=== PATIENT | female | born 1950 | race Asian ===

== ENCOUNTER 2019-06-08 09:42 | Inpatient (IN) | payer OTHER | END 2019-06-10 09:43 | disposition still patient (30) | LOC: PAVB 09:42 | PROVIDERS: ADMIT Internal Medicine ==

== ENCOUNTER 2019-06-10 10:34 | Inpatient (IN) | payer OTHER | END 2019-07-10 09:04 | disposition still patient (30) | LOC: PAVB 10:34 | PROVIDERS: ADMIT Internal Medicine ==

== ENCOUNTER 2019-06-19 05:58 | Outpatient (CLI) | payer OTHER ==
[2019-06-19 06:39] LABS: POTASSIUM 4.2 mmol/L (3.6-5.2)
== END 2019-06-19 20:27 | disposition home or self-care (01) ==
LOC: LAB 05:58
PROVIDERS: Internal Medicine
DX: N18.2 Chronic kidney disease, stage 2 (mild) (principal)
CPT/HCPCS: 36415; 80048

== ENCOUNTER → 2019-06-19 | Outpatient (CLI) | payer OTHER | LOC: LAB 23:41 | DX: Z51.81 Encounter for therapeutic drug level monitoring (principal) | CPT/HCPCS: 36415; 80200 ==

== ENCOUNTER 2019-07-10 10:14 | Inpatient (IN) | payer OTHER | END 2019-08-10 09:13 | disposition still patient (30) | LOC: PAVB 10:14 | PROVIDERS: ADMIT Internal Medicine | CPT/HCPCS: 87635; U0002 ==

== ENCOUNTER 2019-08-10 10:59 | Inpatient (IN) | payer OTHER | END 2019-09-09 10:21 | disposition still patient (30) | LOC: PAVB 10:59 | PROVIDERS: ADMIT Internal Medicine | CPT/HCPCS: 87635; U0002 ==

== ENCOUNTER 2019-08-12 04:58 | Outpatient (CLI) | payer OTHER | END 2019-08-12 21:48 | disposition home or self-care (01) | LOC: LAB 04:58 | DX: E11.9 Type 2 diabetes mellitus without complications (principal) | CPT/HCPCS: 83036 ==

== ENCOUNTER 2019-09-09 11:27 | Inpatient (IN) | payer OTHER | END 2019-10-10 09:18 | disposition still patient (30) | LOC: PAVB 11:27 | PROVIDERS: ADMIT Internal Medicine | CPT/HCPCS: 87635; U0002 ==

== ENCOUNTER 2019-09-16 09:25 | Outpatient (CLI) | payer OTHER | END 2019-09-16 21:30 | disposition home or self-care (01) | LOC: RAD 09:25 | DX: M25.512 Pain in left shoulder (principal) ==

== ENCOUNTER 2019-09-27 23:45 | Outpatient (CLI) | payer OTHER | END 2019-09-27 23:55 | LOC: RAD 23:45 | PROVIDERS: ATTEND Internal Medicine | DX: R06.2 Wheezing (principal) ==

== ENCOUNTER 2019-09-28 00:18 | Outpatient (CLI) | payer OTHER ==
[2019-09-28 02:09] LABS: PLATELET COUNT 203 K/uL (152-353)
== END 2019-09-28 19:25 | disposition home or self-care (01) ==
LOC: LAB 00:18
PROVIDERS: Internal Medicine
DX: R06.2 Wheezing (principal)
CPT/HCPCS: 85027

== ENCOUNTER 2019-10-02 04:43 | Outpatient (CLI) | payer OTHER ==
[2019-10-02 06:00] LABS: POTASSIUM 4.2 mmol/L (3.6-5.2)
== END 2019-10-02 19:38 | disposition home or self-care (01) ==
LOC: LAB 04:43
PROVIDERS: ATTEND Internal Medicine
DX: I50.9 Heart failure, unspecified (principal); I42.8 Other cardiomyopathies
CPT/HCPCS: 80048; 83880

== ENCOUNTER 2019-10-06 10:53 | Outpatient (CLI) | payer OTHER | END 2019-10-06 21:24 | disposition home or self-care (01) | LOC: RESP 10:53 | DX: I50.9 Heart failure, unspecified (principal); I42.8 Other cardiomyopathies ==

== ENCOUNTER 2019-10-10 09:47 | Inpatient (IN) | payer OTHER | END 2019-11-10 10:38 | disposition still patient (30) | LOC: PAVA 09:47 | PROVIDERS: ADMIT Internal Medicine | CPT/HCPCS: 87635; U0002 ==

== ENCOUNTER 2019-10-14 14:26 | Outpatient (CLI) | payer OTHER | END 2019-10-14 19:47 | disposition home or self-care (01) | LOC: RAD 14:26 | DX: M54.2 Cervicalgia (principal) ==

== ENCOUNTER 2019-11-10 11:01 | Inpatient (IN) | payer OTHER | END 2019-12-10 09:27 | disposition still patient (30) | LOC: PAVA 11:01 | PROVIDERS: ADMIT Internal Medicine ==

== ENCOUNTER 2019-11-12 07:37 | Outpatient (CLI) | payer OTHER ==
[2019-11-12 08:59] LABS: POTASSIUM 4.2 mmol/L (3.6-5.2)
[2019-11-12 09:57] LABS: PLATELET COUNT 133 K/uL (152-353)
== END 2019-11-12 21:46 | disposition home or self-care (01) ==
LOC: LAB 07:37
PROVIDERS: Internal Medicine
DX: E11.9 Type 2 diabetes mellitus without complications (principal); I10 Essential (primary) hypertension; E55.9 Vitamin D deficiency, unspecified
CPT/HCPCS: 80053; 82306; 83036; 85027; 87070; 87077; 87186

== ENCOUNTER 2019-12-10 10:41 | Inpatient (IN) | payer OTHER | END 2020-01-10 08:00 | disposition still patient (30) | LOC: PAVA 10:41 | PROVIDERS: ADMIT Internal Medicine ==

== ENCOUNTER 2020-01-10 09:00 | Inpatient (IN) | payer OTHER | END 2020-02-09 08:33 | disposition still patient (30) | LOC: PAVA 09:00 | PROVIDERS: ADMIT Internal Medicine; ATTEND Internal Medicine ==

== ENCOUNTER 2020-02-09 08:51 | Inpatient (IN) | payer OTHER | END 2020-03-11 08:27 | disposition still patient (30) | LOC: PAVA 08:51 | PROVIDERS: ADMIT Internal Medicine; ATTEND Internal Medicine ==

== ENCOUNTER 2020-02-11 08:22 | Outpatient (CLI) | payer OTHER | END 2020-02-11 18:58 | disposition home or self-care (01) | LOC: LAB 08:22 | PROVIDERS: ATTEND Internal Medicine | DX: E11.9 Type 2 diabetes mellitus without complications (principal) | CPT/HCPCS: 83036 ==

== ENCOUNTER 2020-02-16 07:15 | Outpatient (CLI) | payer OTHER | END 2020-02-16 19:43 | disposition home or self-care (01) | LOC: LAB 07:15 | PROVIDERS: ATTEND Internal Medicine | DX: Z51.81 Encounter for therapeutic drug level monitoring (principal) | CPT/HCPCS: 84132 ==

== ENCOUNTER 2020-03-11 08:34 | Inpatient (IN) | payer OTHER | END 2020-04-11 13:09 | disposition still patient (30) | LOC: PAVA 08:34 | PROVIDERS: ADMIT Internal Medicine; ATTEND Internal Medicine ==

== ENCOUNTER 2020-04-11 13:30 | Inpatient (IN) | payer OTHER | END 2020-05-09 08:39 | disposition still patient (30) | LOC: PAVA 13:30 | PROVIDERS: ADMIT Internal Medicine; ATTEND Internal Medicine ==

== ENCOUNTER 2020-05-09 08:45 | Inpatient (IN) | payer OTHER | END 2020-06-09 08:31 | disposition still patient (30) | LOC: PAVA 08:45 | PROVIDERS: ADMIT Internal Medicine; ATTEND Internal Medicine ==

== ENCOUNTER 2020-05-11 11:08 | Outpatient (CLI) | payer OTHER ==
[2020-05-11 12:16] LABS: POTASSIUM 4.1 mmol/L (3.6-5.2)
[2020-05-11 12:40] LABS: PLATELET COUNT 209 K/uL (152-353)
== END 2020-05-11 21:10 | disposition home or self-care (01) ==
LOC: LAB 11:08
PROVIDERS: ATTEND Internal Medicine
DX: Z13.1 Encounter for screening for diabetes mellitus (principal); E55.9 Vitamin D deficiency, unspecified; R68.89 Other general symptoms and signs; Z79.899 Other long term (current) drug therapy
CPT/HCPCS: 80053; 80061; 82306; 83036; 85027

== ENCOUNTER 2020-05-18 05:58 | Outpatient (CLI) | payer OTHER | END 2020-05-18 19:24 | disposition home or self-care (01) | LOC: LAB 05:58 | PROVIDERS: ATTEND Internal Medicine | DX: E11.22 Type 2 diabetes mellitus with diabetic chronic kidney disease (principal) | CPT/HCPCS: 82947 ==

== ENCOUNTER 2020-06-09 09:28 | Inpatient (IN) | payer OTHER | END 2020-07-09 11:56 | disposition still patient (30) | LOC: PAVA 09:28 | PROVIDERS: ADMIT Internal Medicine; ATTEND Internal Medicine ==

== ENCOUNTER 2020-07-09 12:01 | Inpatient (IN) | payer OTHER | END 2020-08-09 13:07 | disposition still patient (30) | LOC: PAVA 12:01 | PROVIDERS: ADMIT Internal Medicine; ATTEND Internal Medicine ==

== ENCOUNTER 2020-08-09 14:09 | Inpatient (IN) | payer OTHER | END 2020-09-05 11:00 | disposition home or self-care (01) | LOC: PAVA 14:09 | PROVIDERS: ADMIT Internal Medicine; ATTEND Internal Medicine | CPT/HCPCS: 36415; 82947 ==

== ENCOUNTER 2020-08-11 07:33 | Outpatient (CLI) | payer OTHER | END 2020-08-11 22:42 | disposition home or self-care (01) | LOC: LAB 07:33 | PROVIDERS: ATTEND Internal Medicine | DX: E11.9 Type 2 diabetes mellitus without complications (principal) | CPT/HCPCS: 83036 ==